=== PATIENT | male | born 1955 | race Two or more races ===

== ENCOUNTER 2022-11-11 13:11 | Inpatient (IN) | payer BC ==
[~2022-11-11] VITALS: Ht 180.3 cm; Wt 72.0 kg
[2022-11-11] MEDS ORDERED: ACETAMINOPHEN 325 MG TAB PO PRN (17:00)
[2022-11-11] MEDS ORDERED: MORPHINE SULFATE INJ 2 MG/ml SYRG IV PRN ×2 (17:00)
[2022-11-11] MEDS ORDERED: DEXTROSE (50%) 50ML SYRG IV PRN (17:00)
[2022-11-11] MEDS: ACCU-CHEK COMFORT CURVE STRIP VI SCH ×2 (17:00→21:50)
[2022-11-11] MEDS: InsuLIN REG 1unit/0.01ml Soln (100units/ml) SC SCH ×2 (17:00→21:31)
[2022-11-11] MEDS ORDERED: VANCOMYCIN PER PHARMACY 0 MG IV SCH (17:00)
[2022-11-11] MEDS ORDERED: NITROGLYCERIN 0.4 MG SL TAB SL PRN (17:00)
[2022-11-11] MEDS ORDERED: ONDANSETRON HCL 4 MG/2 ML VIAL IV PRN (17:00)
[2022-11-11 17:15] VITALS: PULSE 78; RESP 20; O2SAT 98
[2022-11-11 17:30] VITALS: BP 124/82; PULSE 78; RESP 20; TEMP 97.9; O2SAT 98
[2022-11-11] MEDS ORDERED: METF-370 PO (18:00)
[2022-11-11] MEDS ORDERED: HYDR1TAB97 PO (18:00)
[2022-11-11] MEDS ORDERED: VANCOMYCIN 1GM/250ML 250 ML IV ONE (18:00)
[2022-11-11] MEDS ORDERED: CITA-77 PO (18:00)
[2022-11-11] MEDS ORDERED: ROSU10TA64 PO (18:00)
[2022-11-11] MEDS ORDERED: LEVO500T91 PO (18:00)
[2022-11-11] MEDS: SODIUM CHLORIDE 0.9% 1,000 ML IV SCH (18:09)
[2022-11-11 18:14] LABS: Basophils # (auto) 0 10 ^3/uL (0-0.2); Basophils % (auto) 0.7 % (0.0-2.0); Eosinophils # (auto) 0 10 ^3/uL (0-0.8); Eosinophils % (auto) 0.7 % (0.0-7.0); Hemoglobin 16.4 g/dL (13.5-17.5); Lymphocytes # (auto) 1.9 10 ^3/uL (0.4-5.4); Lymphocytes % (auto) 30.2 % (10.0-50.0); Mean Corpuscular Hemoglobin 31.7 pg (28.0-32.0); Mean Corpuscular Hgb Conc. 34.9 g/dL (32.0-36.0); Mean Corpuscular Volume 90.9 fL (80.0-100.0); Monocytes # (auto) 0.5 10 ^3/uL (0-1.3); Monocytes % (auto) 8.6 % (0.0-12.0); Neutrophils # (auto) 3.8 10 ^3/uL (1.6-8.6); Neutrophils % (auto) 59.8 % (37.0-80.0); Nucleated Red Blood Cells % 0.4 %; Red Blood Cells 5.16 10^6/uL (4.5-5.90); Red Cell Distribution Width 13.4 % (11.8-14.3); White Blood Cell 6.3 10^3/uL (4.4-10.8)
[2022-11-11 18:52] LABS: INR 1.22 (0.9-1.15); Partial Thromboplastin Time 40.7 SEC (24.5-34.5); Prothrombin Time 12.6 sec (9.3-11.8)
[2022-11-11] MEDS ORDERED: HEPARIN DRIP/D5W 100UNITS/ML 250 ML IV SCH (19:00)
[2022-11-11] MEDS ORDERED: HEPARIN SODIUM (PORCINE) 5000 UNITS/ML 1ML VIAL IV ONE (19:00)
[2022-11-11 20:00] VITALS: PULSE 77
[2022-11-11] MEDS: ENOXAPARIN SOD 80 MG/0.8ML SYRINGE SC SCH (20:04)
[2022-11-11] MEDS: CEFEPIME 1GM/ 50ML 50 ML IV SCH (21:46)
[2022-11-11 22:00] VITALS: BP 128/71; PULSE 74; RESP 19; TEMP 97.7; O2SAT 95
[2022-11-12] VITALS (7 sets, daily range): BP systolic 116–160; BP diastolic 74–89; PULSE 63–74; RESP 18–20; TEMP 97.7–98.6; O2SAT 96–98
[2022-11-12] MEDS: SODIUM CHLORIDE 0.9% 1,000 ML IV SCH ×3 (01:20→18:25)
[2022-11-12 05:57] LABS: Basophils # (auto) 0 10 ^3/uL (0-0.2); Basophils % (auto) 0.5 % (0.0-2.0); Eosinophils # (auto) 0.1 10 ^3/uL (0-0.8); Eosinophils % (auto) 1.7 % (0.0-7.0); Hematocrit 43.1 % (41.0-53.0); Hemoglobin 14.9 g/dL (13.5-17.5); Lymphocytes % (auto) 33.1 % (10.0-50.0); Mean Corpuscular Hemoglobin 31.5 pg (28.0-32.0); Mean Corpuscular Hgb Conc. 34.5 g/dL (32.0-36.0); Mean Corpuscular Volume 91.2 fL (80.0-100.0); Monocytes # (auto) 0.6 10 ^3/uL (0-1.3); Monocytes % (auto) 9.7 % (0.0-12.0); Neutrophils # (auto) 3.3 10 ^3/uL (1.6-8.6); Nucleated Red Blood Cells % 0.4 %; Red Blood Cells 4.73 10^6/uL (4.5-5.90); Red Cell Distribution Width 13.5 % (11.8-14.3)
[2022-11-12] MEDS: InsuLIN REG 1unit/0.01ml Soln (100units/ml) SC SCH ×4 (06:07→23:18)
[2022-11-12] MEDS: CEFEPIME 1GM/ 50ML 50 ML IV SCH (06:13)
[2022-11-12] MEDS: ACCU-CHEK COMFORT CURVE STRIP VI SCH ×4 (06:16→22:20)
[2022-11-12 06:26] LABS: Alanine Aminotransferase 18 U/L (7-40); Albumin 3.7 g/dL (3.2-4.8); Alkaline Phosphatase 88 U/L (46-116); Anion Gap 5 (5-15); Aspartate Aminotransferase 13 U/L (13-40); BUN/Creatinine Ratio 11.7 (10.0-20.0); Blood Urea Nitrogen 19 mg/dL (9-23); Calcium 8.5 mg/dL (8.7-10.4); Carbon Dioxide 28 mmol/L (20-30); Chloride 103 mmol/L (98-107); Glucose 109 mg/dL (74-106); Potassium 3.8 mmol/L (3.5-5.1); Sodium 136 mmol/L (136-145); Total Protein 6.3 g/dL (5.7-8.2)
[2022-11-12] MEDS: ENOXAPARIN SOD 80 MG/0.8ML SYRINGE SC SCH ×2 (09:10→22:19)
[2022-11-12] MEDS: HYDROcodone-ACET 5/325MG TAB PO PRN (12:06)
[2022-11-12] MEDS: CITALOPRAM HYDROBR 20 MG TAB PO SCH (14:23)
[2022-11-12] MEDS: ceFAZolin 2 GM/D5W100ml 100 ML IV SCH ×2 (15:22→22:18)
[2022-11-12] MEDS ORDERED: APIX5TAB PO (17:11)
[2022-11-12] MEDS ORDERED: BUPR75TA96 PO (17:11)
[2022-11-12] MEDS ORDERED: BENA40TA83 PO (17:11)
[2022-11-12] MEDS ORDERED: GABA-1250 PO (17:11)
[2022-11-12] MEDS ORDERED: AMLO1TAB23 PO (17:11)
[2022-11-12] MEDS ORDERED: ATO40T PO (17:11)
[2022-11-12] MEDS ORDERED: OMEP20TA PO (17:11)
[2022-11-12] MEDS ORDERED: VANCOMYCIN 750mg/250ml 250 ML IV SCH (18:30)
[2022-11-12] MEDS: MELATONIN 5 MG TAB PO SCH (22:20)
[2022-11-12] MEDS: ATORVASTATIN 20 MG TAB PO SCH (22:20)
[2022-11-12] MEDS ORDERED: hydrALAZINE HCL 20 MG/ML VL IV PRN (22:30)
[2022-11-13] VITALS (7 sets, daily range): BP systolic 123–136; BP diastolic 68–78; PULSE 64–81; RESP 16–22; TEMP 36.9; O2SAT 97–99
[2022-11-13] MEDS ORDERED: hydrALAZINE HCL 20 MG/ML VL IV PRN (00:15)
[2022-11-13] MEDS: SODIUM CHLORIDE 0.9% 1,000 ML IV SCH ×3 (04:06→19:00)
[2022-11-13] MEDS: ceFAZolin 2 GM/D5W100ml 100 ML IV SCH ×3 (05:15→21:50)
[2022-11-13 05:54] LABS: Chloride 105 mmol/L (98-107); Potassium 4.5 mmol/L (3.5-5.1); Sodium 138 mmol/L (136-145)
[2022-11-13 05:55] LABS: Anion Gap 2 (5-15); Calcium 8.8 mg/dL (8.7-10.4); Carbon Dioxide 31 mmol/L (20-30)
[2022-11-13 06:00] LABS: BUN/Creatinine Ratio 8.5 (10.0-20.0); Blood Urea Nitrogen 14 mg/dL (9-23); Glucose 103 mg/dL (74-106)
[2022-11-13] MEDS: InsuLIN REG 1unit/0.01ml Soln (100units/ml) SC SCH ×4 (07:00→21:05)
[2022-11-13] MEDS: ACCU-CHEK COMFORT CURVE STRIP VI SCH ×4 (07:01→22:00)
[2022-11-13] MEDS: ENOXAPARIN SOD 80 MG/0.8ML SYRINGE SC SCH ×2 (08:43→20:27)
[2022-11-13] MEDS: amLODIPine BESYLATE 5 MG TAB PO SCH (09:17)
[2022-11-13] MEDS: ASPirin-EC 81 mg tab PO SCH (09:17)
[2022-11-13] MEDS: CITALOPRAM HYDROBR 20 MG TAB PO SCH (09:17)
[2022-11-13] MEDS: HYDROcodone-ACET 5/325MG TAB PO PRN (20:29)
[2022-11-13] MEDS: ATORVASTATIN 20 MG TAB PO SCH (20:30)
[2022-11-13] MEDS: MELATONIN 5 MG TAB PO SCH (21:50)
[2022-11-13] MEDS: ACETYLCYSTEINE ORAL for CIN 20%(200MG/ML) 4ML PO SCH (22:00)
[2022-11-14] MEDS: SODIUM CHLORIDE 0.9% 1,000 ML IV SCH ×3 (03:20→13:00)
[2022-11-14 05:00] VITALS: BP 127/73; PULSE 62; RESP 17; TEMP 97.7; O2SAT 96
[2022-11-14 05:21] LABS: Basophils # (auto) 0 10 ^3/uL (0-0.2); Basophils % (auto) 0.7 % (0.0-2.0); Eosinophils # (auto) 0.2 10 ^3/uL (0-0.8); Eosinophils % (auto) 3.3 % (0.0-7.0); Hematocrit 43.2 % (41.0-53.0); Hemoglobin 15.1 g/dL (13.5-17.5); Lymphocytes # (auto) 1.8 10 ^3/uL (0.4-5.4); Lymphocytes % (auto) 33.9 % (10.0-50.0); Mean Corpuscular Hemoglobin 31.6 pg (28.0-32.0); Mean Corpuscular Hgb Conc. 35.1 g/dL (32.0-36.0); Monocytes # (auto) 0.6 10 ^3/uL (0-1.3); Monocytes % (auto) 10.2 % (0.0-12.0); Neutrophils # (auto) 2.8 10 ^3/uL (1.6-8.6); Neutrophils % (auto) 51.9 % (37.0-80.0); Nucleated Red Blood Cells % 0.4 %; Red Blood Cells 4.79 10^6/uL (4.5-5.90); Red Cell Distribution Width 13.1 % (11.8-14.3); White Blood Cell 5.4 10^3/uL (4.4-10.8)
[2022-11-14 05:30] LABS: Anion Gap 4 (5-15); Calcium 8.7 mg/dL (8.7-10.4); Carbon Dioxide 30 mmol/L (20-30); Chloride 103 mmol/L (98-107); Potassium 4.4 mmol/L (3.5-5.1); Sodium 137 mmol/L (136-145)
[2022-11-14 05:35] LABS: Glucose 117 mg/dL (74-106)
[2022-11-14 05:36] LABS: BUN/Creatinine Ratio 12.6 (10.0-20.0); Blood Urea Nitrogen 18 mg/dL (9-23)
[2022-11-14 05:38] LABS: Phosphorus 3.8 mg/dL (2.4-5.1)
[2022-11-14 05:44] LABS: Uric Acid 3.6 mg/dL (3.7-9.2)
[2022-11-14] MEDS: InsuLIN REG 1unit/0.01ml Soln (100units/ml) SC SCH ×4 (06:33→21:41)
[2022-11-14] MEDS: ACCU-CHEK COMFORT CURVE STRIP VI SCH ×4 (06:35→21:42)
[2022-11-14] MEDS: ceFAZolin 2 GM/D5W100ml 100 ML IV SCH ×3 (06:35→21:30)
[2022-11-14 08:00] VITALS: BP 129/73; PULSE 61; PULSE 71; PULSE 98; RESP 20; TEMP 97.7; O2SAT 98
[2022-11-14] MEDS: ENOXAPARIN SOD 80 MG/0.8ML SYRINGE SC SCH ×2 (08:20→19:48)
[2022-11-14 08:43] VITALS: BP 129/73; PULSE 61; RESP 20; TEMP 97.7; O2SAT 98
[2022-11-14] MEDS: CITALOPRAM HYDROBR 20 MG TAB PO SCH (09:18)
[2022-11-14] MEDS: ASPirin-EC 81 mg tab PO SCH (09:18)
[2022-11-14] MEDS: ACETYLCYSTEINE ORAL for CIN 20%(200MG/ML) 4ML PO SCH (09:29)
[2022-11-14] MEDS: amLODIPine BESYLATE 5 MG TAB PO SCH (09:29)
[2022-11-14 12:36] VITALS: BP 134/69; PULSE 64; RESP 20; TEMP 98.1; O2SAT 98
[2022-11-14 20:00] VITALS: PULSE 63; O2SAT 98
[2022-11-14] MEDS: ATORVASTATIN 20 MG TAB PO SCH (21:30)
[2022-11-14] MEDS: MELATONIN 5 MG TAB PO SCH (21:38)
[2022-11-14] MEDS: HYDROcodone-ACET 5/325MG TAB PO PRN (21:39)
[2022-11-14 22:00] VITALS: BP 157/92; PULSE 87; RESP 18; TEMP 98.4; O2SAT 93
[2022-11-15] VITALS (10 sets, daily range): BP systolic 115–146; BP diastolic 62–86; PULSE 59–86; RESP 14–18; TEMP 97.5–98.8; O2SAT 92–98
[2022-11-15] MEDS: ACETYLCYSTEINE ORAL for CIN 20%(200MG/ML) 4ML PO SCH ×2 (00:09→11:05)
[2022-11-15] MEDS: SODIUM CHLORIDE 0.9% 1,000 ML IV SCH ×2 (01:50→14:15)
[2022-11-15] MEDS: ceFAZolin 2 GM/D5W100ml 100 ML IV SCH ×2 (05:04→14:11)
[2022-11-15] MEDS: ACCU-CHEK COMFORT CURVE STRIP VI SCH ×3 (05:54→17:24)
[2022-11-15] MEDS: InsuLIN REG 1unit/0.01ml Soln (100units/ml) SC SCH ×3 (05:54→17:25)
[2022-11-15 06:27] LABS: Anion Gap 4 (5-15); Calcium 8.6 mg/dL (8.7-10.4); Carbon Dioxide 30 mmol/L (20-30); Chloride 102 mmol/L (98-107); Potassium 4.3 mmol/L (3.5-5.1); Sodium 136 mmol/L (136-145)
[2022-11-15 06:33] LABS: BUN/Creatinine Ratio 9.4 (10.0-20.0); Blood Urea Nitrogen 13 mg/dL (9-23); Glucose 145 mg/dL (74-106)
[2022-11-15] MEDS ORDERED: ANGIOMAX 250 MG VIAL IV ONE (08:33)
[2022-11-15] MEDS ORDERED: fentaNYL CITRATE 100 MCG/2 ML VL ONE (08:33)
[2022-11-15] MEDS ORDERED: SODIUM CHL 0.9% 0 ML ONE (08:34)
[2022-11-15] MEDS ORDERED: MIDAZOLAM HCL 2MG/2ML 2ml VIAL (1mg/ml) ONE (08:34)
[2022-11-15] MEDS: ASPirin-EC 81 mg tab PO SCH (11:00)
[2022-11-15] MEDS: CITALOPRAM HYDROBR 20 MG TAB PO SCH (11:01)
[2022-11-15] MEDS: amLODIPine BESYLATE 5 MG TAB PO SCH (11:01)
[2022-11-15] MEDS ORDERED: LEVO500T91 PO (13:10)
[2022-11-15] MEDS ORDERED: ASPI-543 PO (13:10)
[2022-11-15] MEDS ORDERED: TAMS-35 PO (13:29)
[2022-11-15] MEDS: HYDROcodone-ACET 5/325MG TAB PO PRN (17:26)
[2022-11-16] MEDS ORDERED: levoFLOXacin 500 MG TAB PO SCH (10:00)
== END 2022-11-15 18:24 | disposition home health service (06) | DRG 300 ==
LOC: TELE-WESTW 16:55
PROVIDERS: ADMIT Internal Medicine; ATTEND Internal Medicine
PROC: B41G1ZZ Fluoroscopy of Left Lower Extremity Arteries using Low Osmolar Contrast (ICD-10-PCS; principal; 2022-11-15)
PROC: B41F1ZZ Fluoroscopy of Right Lower Extremity Arteries using Low Osmolar Contrast (ICD-10-PCS; 2022-11-15)
PROC: B44HZZZ Ultrasonography of Bilateral Lower Extremity Arteries (ICD-10-PCS; 2022-11-15)
DX: E11.51 Type 2 diabetes mellitus with diabetic peripheral angiopathy without gangrene (principal); L02.612 Cutaneous abscess of left foot; L03.116 Cellulitis of left lower limb; M86.8X7 Other osteomyelitis, ankle and foot; N17.9 Acute kidney failure, unspecified; E11.69 Type 2 diabetes mellitus with other specified complication; N18.32 Chronic kidney disease, stage 3b; I12.9 Hypertensive chronic kidney disease with stage 1 through stage 4 chronic kidney disease, or unspecified chronic kidney disease; E11.22 Type 2 diabetes mellitus with diabetic chronic kidney disease; F32.A Depression, unspecified; N14.11 Contrast-induced nephropathy; T50.8X5A Adverse effect of diagnostic agents, initial encounter; N40.1 Benign prostatic hyperplasia with lower urinary tract symptoms; F41.9 Anxiety disorder, unspecified; E78.5 Hyperlipidemia, unspecified; Z83.3 Family history of diabetes mellitus; Z82.49 Family history of ischemic heart disease and other diseases of the circulatory system; Z79.891 Long term (current) use of opiate analgesic; Z79.899 Other long term (current) drug therapy; Z86.718 Personal history of other venous thrombosis and embolism; Z87.891 Personal history of nicotine dependence; Z86.19 Personal history of other infectious and parasitic diseases; Y92.89 Other specified places as the place of occurrence of the external cause; I82.402 Acute embolism and thrombosis of unspecified deep veins of left lower extremity
CPT/HCPCS: 36415; 73718; 75716; 76937; 80048; 80053; 82565; 82962; 83036; 84100; 84550; 85025; 85610; 85730; 87081; 87205; 93005; 93925; 93970; 97110; 97116; 97163; 97530; 99152; G0378; J1815; J2250; J2405

== ENCOUNTER 2022-12-21 06:04 | Inpatient (IN) | payer BC ==
[~2022-12-21] VITALS: Ht 185.4 cm; Wt 75.3 kg
[~2022-12-21 06:04] MED LIST: AMLO1TAB23 PO; ASPI-543 PO; ATO40T PO; BENA40TA83 PO; BUPR75TA96 PO; CITA-77 PO; DAPA1TAB4 PO; DOCU-111 PO; GABA-1250 PO; GLIP5TAB12 PO; HYDR-4902 PO; LINA5TAB PO; OMEP20TA PO; TAMS-35 PO
[2022-12-21] MEDS ORDERED: BUPIVACAINE HCL 50 ML ONE (06:55)
[2022-12-21] MEDS ORDERED: LIDOCAINE W/ EPINEPHRINE 1% 20ML VIAL ONE (06:55)
[2022-12-21] MEDS ORDERED: SUCCINYLCHOLINE CHLORIDE 20 MG/ML 10ML VIAL IV ONE (06:59)
[2022-12-21] MEDS ORDERED: METOCLOPRAMIDE HCL 5MG/ml INJ 2ml VIAL IV PRN (07:00)
[2022-12-21] MEDS ORDERED: ONDANSETRON HCL 4 MG/2 ML VIAL IV PRN ×2 (07:00→13:30)
[2022-12-21] MEDS ORDERED: HYDROmorphone HCL 2 MG/ML VL/or syr IV PRN (07:00)
[2022-12-21] MEDS ORDERED: fentaNYL CITRATE 100 MCG/2 ML VL ONE ×2 (07:01→09:17)
[2022-12-21] MEDS ORDERED: PROPOFOL 10 MG/ML 20 ML IV ONE (07:04)
[2022-12-21] MEDS ORDERED: ceFAZolin 2 GM/D5W100ml 100 ML IV ONE (07:20)
[2022-12-21] MEDS ORDERED: ROCURONIUM 10MG/ML 10ML VIAL IV ONE (07:42)
[2022-12-21] MEDS ORDERED: ePHEDrine SULFATE 50 MG/ML AMP ONE (07:45)
[2022-12-21] MEDS ORDERED: DexAMETHasone SOD PHOS 10MG/1ML VIAL INJ ONE (07:59)
[2022-12-21] MEDS ORDERED: ONDANSETRON HCL 4 MG/2 ML VIAL ONE (07:59)
[2022-12-21] MEDS ORDERED: LIDOCAINE HCL (LOCAL ANESTH.) 0.5 % 50ML MDV IJ ONE (08:05)
[2022-12-21] MEDS ORDERED: BUPIVACAINE 0.5% P/F INJ 10 ML VIAL ONE (10:09)
[2022-12-21] MEDS ORDERED: SUGAMMADEX 200mg/2ml Vial (100MG/ML) IV ONE (10:19)
[2022-12-21] MEDS ORDERED: MEPERIDINE HCL (25 MG/ML) 1ML VIAL ONE (10:22)
[2022-12-21 10:30] VITALS: PULSE 82; RESP 13; O2SAT 97
[2022-12-21] MEDS ORDERED: InsuLIN REG 1unit/0.01ml Soln (100units/ml) SC ONE (10:45)
[2022-12-21] MEDS ORDERED: NITROGLYCERIN 0.4 MG SL TAB SL PRN (10:45)
[2022-12-21] MEDS ORDERED: hydrALAZINE HCL 20 MG/ML VL IV PRN (12:30)
[2022-12-21] MEDS ORDERED: ALBUTEROL MEDNEB 2.5 mg/3ml NEB NEB PRN (12:30)
[2022-12-21] MEDS ORDERED: DEXTROSE (50%) 50ML SYRG IV PRN (12:30)
[2022-12-21] MEDS ORDERED: PNEUMOCOCCAL VACC POLYS 25 MCG/0.5 ML VIAL IM ONE (12:45)
[2022-12-21 13:00] VITALS: BP 115/69; PULSE 85; RESP 14; TEMP 98.3; O2SAT 97
[2022-12-21 17:00] VITALS: BP 121/75; PULSE 102; RESP 16; TEMP 98; O2SAT 98
[2022-12-21] MEDS: ACCU-CHEK COMFORT CURVE STRIP VI SCH ×2 (17:03→21:55)
[2022-12-21] MEDS: InsuLIN REG 1unit/0.01ml Soln (100units/ml) SC SCH ×2 (17:10→21:58)
[2022-12-21] MEDS ORDERED: TAMSULOSIN HYDROCHLORIDE 0.4 MG CAP PO SCH (18:00)
[2022-12-21 18:22] VITALS: O2SAT 97
[2022-12-21 20:00] VITALS: BP 108/64; PULSE 103; RESP 17; TEMP 98.6; O2SAT 99
[2022-12-21] MEDS: GABAPENTIN 300 MG CAP PO SCH (21:38)
[2022-12-21] MEDS: PANTOPRAZOLE 40 MG TAB PO SCH (21:39)
[2022-12-21] MEDS: DOCUSATE SOD 100 MG CAP PO SCH (21:59)
[2022-12-21 22:00] VITALS: BP 108/64; PULSE 103; RESP 17; TEMP 98.6; O2SAT 99
[2022-12-22] VITALS (7 sets, daily range): BP systolic 94–121; BP diastolic 60–75; PULSE 78–103; RESP 17–21; TEMP 36.4; O2SAT 96–99
[2022-12-22] MEDS: HYDROcodone-ACET 5/325MG TAB PO PRN ×2 (05:27→09:33)
[2022-12-22 05:42] LABS: Basophils # (auto) 0 10 ^3/uL (0-0.2); Eosinophils # (auto) 0 10 ^3/uL (0-0.8); Hematocrit 46.4 % (41.0-53.0); Hemoglobin 15.4 g/dL (13.5-17.5); Lymphocytes # (auto) 1.3 10 ^3/uL (0.4-5.4); Lymphocytes % (auto) 8.8 % (10.0-50.0); Mean Corpuscular Hemoglobin 31.2 pg (28.0-32.0); Mean Corpuscular Hgb Conc. 33.3 g/dL (32.0-36.0); Mean Corpuscular Volume 93.7 fL (80.0-100.0); Monocytes # (auto) 1.1 10 ^3/uL (0-1.3); Monocytes % (auto) 7.8 % (0.0-12.0); Neutrophils # (auto) 12.1 10 ^3/uL (1.6-8.6); Neutrophils % (auto) 83.4 % (37.0-80.0); Nucleated Red Blood Cells % 0.2 %; Red Blood Cells 4.95 10^6/uL (4.5-5.90); Red Cell Distribution Width 15.1 % (11.8-14.3); White Blood Cell 14.5 10^3/uL (4.4-10.8)
[2022-12-22 05:51] LABS: Anion Gap 5 (5-15); Carbon Dioxide 29 mmol/L (20-30); Chloride 101 mmol/L (98-107); Potassium 5.2 mmol/L (3.5-5.1); Sodium 135 mmol/L (136-145)
[2022-12-22 05:52] LABS: Calcium 8.8 mg/dL (8.5-10.1)
[2022-12-22 05:57] LABS: BUN/Creatinine Ratio 11.5 (10.0-20.0); Blood Urea Nitrogen 18 mg/dL (9-23); Glucose 225 mg/dL (74-106)
[2022-12-22] MEDS: ACCU-CHEK COMFORT CURVE STRIP VI SCH ×2 (06:33→12:17)
[2022-12-22] MEDS: InsuLIN REG 1unit/0.01ml Soln (100units/ml) SC SCH ×2 (06:37→12:21)
[2022-12-22] MEDS: DOCUSATE SOD 100 MG CAP PO SCH (09:33)
[2022-12-22] MEDS: GABAPENTIN 300 MG CAP PO SCH (09:33)
[2022-12-22] MEDS: PANTOPRAZOLE 40 MG TAB PO SCH (09:34)
[2022-12-22] MEDS ORDERED: amLODIPine BESYLATE 5 MG TAB PO SCH (10:00)
[2022-12-22] MEDS ORDERED: CITALOPRAM HYDROBR 20 MG TAB PO SCH (10:00)
== END 2022-12-22 15:45 | disposition home or self-care (01) | DRG 715 ==
LOC: SUR 06:04 → OVERFLOW 10:38 → OBSVTOIN 10:38 → CENTRAL 11:45 → UNDODISOB 12-22 15:53
PROVIDERS: ADMIT Nurse Practitioner Family; ATTEND Urology
PROC: 8E0Y4CZ Robotic Assisted Procedure of Lower Extremity, Percutaneous Endoscopic Approach (ICD-10-PCS; 2022-12-21)
PROC: 0VB Male Reproductive System, Excision (ICD-10-PCS; principal; 2022-12-21 07:25)
DX: C61 Malignant neoplasm of prostate (principal); N17.9 Acute kidney failure, unspecified; N40.1 Benign prostatic hyperplasia with lower urinary tract symptoms; R33.8 Other retention of urine; R31.9 Hematuria, unspecified; F32.9 Major depressive disorder, single episode, unspecified; I13.10 Hypertensive heart and chronic kidney disease without heart failure, with stage 1 through stage 4 chronic kidney disease, or unspecified chronic kidney disease; E11.22 Type 2 diabetes mellitus with diabetic chronic kidney disease; N18.9 Chronic kidney disease, unspecified; E11.51 Type 2 diabetes mellitus with diabetic peripheral angiopathy without gangrene; Z79.82 Long term (current) use of aspirin; Z79.84 Long term (current) use of oral hypoglycemic drugs; Z83.3 Family history of diabetes mellitus; Z82.49 Family history of ischemic heart disease and other diseases of the circulatory system
CPT/HCPCS: 36415; 80048; 82962; 85025; 86850; 86900; 86901; 96372; 97116; 97163; 97530; G0378; J0330; J1100; J1815; J2405; J2704; J3490

== ENCOUNTER 2023-03-08 06:05 | Day surgery (SDC) | payer BC ==
[~2023-03-08] VITALS: Ht 177.8 cm; Wt 77.1 kg
[~2023-03-08 06:05] MED LIST changes: +AMLO1TAB16 PO; -AMLO1TAB23 PO; -ASPI-543 PO; -BENA40TA83 PO; +BICA50TA41 PO; +BUPR-133 PO; -BUPR75TA96 PO; +CHOLCAP4 PO
[2023-03-08] MEDS ORDERED: CIPROFLOXACIN 400MG/200ML 200 ML IV ONE (06:45)
[2023-03-08] MEDS ORDERED: fentaNYL CITRATE 100 MCG/2 ML VL ONE ×2 (07:09→08:17)
[2023-03-08] MEDS ORDERED: PROPOFOL 10 MG/ML 20 ML IV ONE (07:10)
[2023-03-08] MEDS ORDERED: ONDANSETRON HCL 4 MG/2 ML VIAL ONE (08:05)
[2023-03-08] MEDS ORDERED: DexAMETHasone SOD PHOS 10MG/1ML VIAL INJ ONE (08:05)
[2023-03-08] MEDS ORDERED: ePHEDrine SULFATE 50 MG/ML AMP ONE (08:10)
[2023-03-08 08:53] VITALS: PULSE 64; RESP 9; TEMP 98.2; O2SAT 96
[2023-03-08 10:00] VITALS: BP 136/73; PULSE 66; RESP 11; O2SAT 96
== END 2023-03-08 10:15 | disposition home or self-care (01) ==
LOC: SUR 06:05
PROVIDERS: ATTEND Urology
DX: C61 Malignant neoplasm of prostate (principal); N40.1 Benign prostatic hyperplasia with lower urinary tract symptoms; I12.9 Hypertensive chronic kidney disease with stage 1 through stage 4 chronic kidney disease, or unspecified chronic kidney disease; E11.22 Type 2 diabetes mellitus with diabetic chronic kidney disease; N18.9 Chronic kidney disease, unspecified; E78.5 Hyperlipidemia, unspecified; F41.8 Other specified anxiety disorders; K21.9 Gastro-esophageal reflux disease without esophagitis; Z83.3 Family history of diabetes mellitus; Z82.49 Family history of ischemic heart disease and other diseases of the circulatory system; Z87.891 Personal history of nicotine dependence; Z79.899 Other long term (current) drug therapy; Z79.84 Long term (current) use of oral hypoglycemic drugs; Z79.891 Long term (current) use of opiate analgesic; Z90.49 Acquired absence of other specified parts of digestive tract; Z98.890 Other specified postprocedural states
CPT/HCPCS: 52601; 82962; 88307; 88342; J0744; J1100; J2405; J2704; J3010